=== PATIENT | female | born 1985 | race Caucasian/White ===

== ENCOUNTER 2024-03-26 13:11 | Emergency (ER) | payer OTHER ==
[~2024-03-26] VITALS: Ht 157.5 cm; Wt 62.6 kg
[2024-03-26 13:35] VITALS: BP 144/87; TEMP 98.5; O2SAT 99
[2024-03-26] MEDS ORDERED: KETOROLAC TROMETHAMINE 15 MG/ML VIAL ONE (13:59)
[2024-03-26] MEDS: KETOROLAC TROMETHAMINE 15 MG/ML VIAL IM ONE (14:14)
== END 2024-03-26 14:55 | disposition home or self-care (01) ==
LOC: ER 13:15
DX: S13.4XXA Sprain of ligaments of cervical spine, initial encounter (principal); M54.6 Pain in thoracic spine; V43.52XA Car driver injured in collision with other type car in traffic accident, initial encounter; Y93.89 Activity, other specified; Y92.488 Other paved roadways as the place of occurrence of the external cause; Y99.8 Other external cause status
CPT/HCPCS: 99283; 96372; J1885